=== PATIENT | male | born 1970 ===

== ENCOUNTER 2023-10-01 05:49 | Emergency (ER) | payer OTHER, SELFPAY ==
[2023-10-01 06:02] VITALS: BP 141/87; PULSE 91; RESP 20; TEMP 36.1; O2SAT 95
--- NOTE | 2023-10-01 06:17 | ED.GENADULT ---
HPI - General Adult General Date Seen: 10/01/23 Chief complaint: Unspecified Complaint, Adult Stated complaint: Weakness- pain all over Time Seen by Provider: 10/01/23 06:17 Source: patient Mode of arrival: ambulatory Limitations: language barrier History of Present Illness HPI narrative: 53-year-old male presents after waking from sleep with sweats and substernal chest pain that radiated down his left arm. He has never had this type of pain previously. He denies any health history. His father did have an GA. He is a smoker. He takes no medications regularly. He drove himself to the hospital. He does not speak [place] in we did use an online film developing machine operator. Related Data Home Medications Medication Instructions Recorded Confirmed No Known Home Medications 10/01/23 10/01/23 Allergies Allergy/AdvReac Type Severity Reaction Status Date / Time No Known Drug Allergies Allergy Verified 10/01/23 06:06 Review of Systems Narrative: Review of systems is as outlined above otherwise noted to be negative. Exam Narrative: Exam Narrative: Vitals noted. He is restless and uncomfortable. No respiratory distress. HEENT: Neck is supple without adenopathy, thyromegaly, carotid bruit. Lungs: Clear to auscultation in all leyva. No wheezes, rales, rhonchi. Heart: Regular rate and rhythm without murmur. Abdomen: Soft and nontender. No guarding, rigidity, rebound. Bowel sounds are normal. No palpable masses. Extremities: No cyanosis or edema. Good distal pulses. Const: Vital Signs, click to edit/add: Vital Signs - 24 hr 10/01/23 06:02 10/01/23 06:44 10/01/23 07:11 Temperature 97 F L Pulse Rate Pulse Rate [Pulse Oximeter] 91 69 Respiratory Rate 20 20 Respiratory Rate [ Generalized] 16 Blood Pressure Blood Pressure [Ri ght Upper Arm] 141/87 H 120/86 Pulse Oximetry 95 98 Oxygen Delivery Me thod Room Air Room Air 10/01/23 07:11 10/01/23 07:12 10/01/23 07:15 Temperature Pulse Rate 68 76 75 Pulse Rate [Pulse Oximeter] Respiratory Rate Respiratory Rate [ Generalized] Blood Pressure 120/86 Blood Pressure [Ri ght Upper Arm] Pulse Oximetry 98 98 98 Oxygen Delivery Me thod Course Course ED Course: Patient was initially placed in room 3 and after I spoke with him we moved him to room eight. EKG showed ST-elevation in V1, V2, V3. Standard STEMI procedures were rapidly followed. He received aspirin 325 mg orally, Brilinta 180 mg orally, nitroglycerin 0.4 mg sublingual with minimal relief. We initiated a nitroglycerin drip. He was placed on heparin 4000 unit bolus followed by drip. He did receive morphine 2 mg IV for pain. We contacted [facility] and I spoke with Dr. Soares. He will be rapidly transported by ground ambulance directly to the medical lab assistant at [facility]. Reevaluation(s) Reevaluation #1: EKG remains unchanged in the patient still having pain. His nitro has been increased to 10 micrograms/minute and another 2 mg of morphine was given. He is departing by ground ambulance in stable condition. Chest x-ray is normal. CBC is normal. Basic metabolic panel is normal other than a glucose of 152. LFTs are normal. Lipase is normal. Triple swab is pending. Troponin 0.03. D-dimer is normal. INR is 1.0. PTT is 29. Vital Signs Vital signs: Initial Vital Signs Temperature 97 F L 10/01/23 06:02 Temperature Source Temporal Artery Scan 10/01/23 06:02 Pulse Rate 91 10/01/23 06:02 Pulse Rhythm Regular 10/01/23 06:02 Respiratory Rate 20 10/01/23 06:02 Blood Pressure 141/87 H 10/01/23 06:02 Blood Pressure Mean 105 10/01/23 06:02 Blood Pressure Position Sitting 10/01/23 06:02 Pulse Oximetry 95 10/01/23 06:02 Oxygen Delivery Method Room Air 10/01/23 06:02 Vital Signs Temperature 97 F L 10/01/23 06:02 Pulse Rate 91 10/01/23 06:02 Respiratory Rate 20 10/01/23 06:02 Blood Pressure 141/87 H 10/01/23 06:02 Pulse Oximetry 95 10/01/23 06:02 Oxygen Delivery Method Room Air 10/01/23 06:02 Temperature 97 F L 10/01/23 06:02 Pulse Rate 75 10/01/23 07:15 Respiratory Rate 20 10/01/23 07:11 Blood Pressure 120/86 10/01/23 07:11 Pulse Oximetry 98 10/01/23 07:15 Oxygen Delivery Method Room Air 10/01/23 07:11 Medications Administered Medications: Generic Name Dose Route Start Last Admin Trade Name Freq PRN Reason Stop Dose Admin Heparin Sodium/Dextrose 25,000 unit in 500 mls @ 0 mls/hr 10/01/23 06:30 10/01/23 06:56 Heparin IV 19 mls/hr .PER PROTOCOL ERIC Administration Per Protocol Nitroglycerin/Dextrose 25,000 mcg in 250 mls @ 3 mls/hr 10/01/23 07:11 10/01/23 07:16 Nitroglycerin/Dextrose IVPB 5 mcg/min .TITRATE PRN 3 mls/hr Administration 5 MCG/MIN Discontinued Medications Generic Name Dose Route Start Last Admin Trade Name Freq PRN Reason Stop Dose Admin Aspirin 324 mg 10/01/23 06:30 10/01/23 06:42 Aspirin 81 Mg Tab.Chew PO 10/01/23 06:31 324 mg ONCE ONE Administration Clopidogrel Bisulfate 300 mg 10/01/23 06:39 10/01/23 07:18 Clopidogrel 300 Mg Tablet PO 10/01/23 06:40 Not Given ONCE ONE Heparin Sodium (Porcine) 4,000 unit 10/01/23 06:30 10/01/23 06:54 Heparin 5,000 Unit/0.5 Ml Inj IVP 10/01/23 06:31 4,000 unit ONCE ONE Administration Morphine Sulfate 2 mg 10/01/23 07:01 10/01/23 07:08 Morphine 2 Mg/Ml Inj IVP 10/01/23 07:02 2 mg ONCE ONE Administration Nitroglycerin 0.4 mg 10/01/23 06:30 10/01/23 06:42 Nitroglycerin 0.4 Mg Tab.Subl SUBLINGUAL 10/01/23 06:31 0.4 mg ONCE ONE Administration Ticagrelor 180 mg 10/01/23 06:58 10/01/23 07:01 Ticagrelor 90 Mg Tablet PO 10/01/23 06:59 180 mg ONCE ONE Administration Medical Decision Making Lab Data Labs: Lab Results 10/01/23 Range/Units 06:34 WBC 11.40 H (4.50-11.00) K/uL RBC 5.19 (4.30-5.90) m/uL Hgb 16.1 (13.5-17.5) gm/dL Hct 48.8 (37.0-53.0) % MCV 94 (80-100) fL MCH 31 (26-34) pg MCHC 33 (32-36) gm/dL RDW Coeff of [place] 12.0 (11.5-15.5) % Plt Count 246 (140-440) K/uL Neut % (Auto) 50.0 (42.0-72.0) % Lymph % (Auto) 40.5 (20-44) % [place] % (Auto) 4.6 (0.0-11.0) % Eos % (Auto) 4.0 (0.0-7.0) % Baso % (Auto) 0.7 (0.0-3.0) % Neut # (Auto) 5.70 (1.7-7.0) K/uL Lymph # (Auto) 4.60 H (0.90-2.90) K/uL [place] # (Auto) 0.50 (0.00-0.90) K/UL Eos # (Auto) 0.50 (0.00-0.50) K/uL Baso # (Auto) 0.10 (0.00-0.30) K/uL Abs Immat Gran (auto) 0.00 (0.00-0.30) K/uL Imm/Tot Granulo (auto) 0.2 % D-Dimer Quant (PE/DVT) Cancelled Sodium 138 (135-149) mmol/L Potassium 3.7 (3.6-5.1) mmol/L Chloride 106 (96-114) mmol/L Carbon Dioxide 22 (20-32) mmol/L Anion Gap 10 (7-15) mEq/L BUN 12 (7-30) mg/dL Creatinine 0.8 (0.5-1.5) mg/dL Estimated Creat Clear 91.47 Estimated GFR 107 ml/min Glucose 152 H (60-115) mg/dL Calcium 8.6 (8.4-10.6) mg/dL Total Bilirubin 0.5 (0.1-1.5) mg/dL Direct Bilirubin 0.0 (0.0-0.5) mg/dL AST 27 (12-35) U/L ALT 26 (4-50) U/L Alkaline Phosphatase 85 (40-150) U/L Total Protein 7.3 (6.0-8.3) g/dL Albumin 4.4 (3.3-5.0) g/dL Lipase 56 (23-300) U/L Critical Care Time Critical Care Time Critical Care Time: Yes Attestation: The patient required my highest level preparedness to intervene emergently and I personally spent this critical care time directly and personally managing the patient. This critical care time included: Obtaining a history; Examining the patient; Pulse oximetry; Ordering and reviewing of studies; Arranging urgent treatment with development of a management plan; Evaluation of patients response to treatment; Frequent reassessment discussions with other providers. This critical care time was performed to assess and manage the high probability of imminent life-threatening deterioration that could result in multiorgan failure. It was exclusive of separate billable procedures and treating other patients and teaching time. Total Critical Care Time in Minutes: 70 Discharge Plan Discharge Clinical Impression: ST elevation myocardial infarction (STEMI) Patient Disposition: [facility] Condition: Improved Prescriptions: No Action No Known Home Medications
--- NOTE | 2023-10-01 06:31 | CRLHL7_ITS ---
For Patients: As a result of the Century Cures Act, medical imaging exams and procedure reports are released immediately into your electronic medical record. You may view this report before your referring provider. If you have questions, please contact your health care provider. INDICATION: STEMI. TECHNIQUE: Chest 1 views. COMPARISON: None. FINDINGS: Cardiovasculature and mediastinum: Heart size and vasculature are normal in caliber and appearance. Lungs and pleural spaces: Right infrahilar atelectasis or infiltrate. Remainder of the lungs and pleural spaces are clear. No pneumothorax. Bones and soft tissues: No significant findings. Dictated by Yasmani Whittington MD @ 10/01/2023 7:08:52 AM (Electronically Signed)
[2023-10-01] MEDS: ASPIRIN 81 MG TAB.CHEW 324 MG PO (06:42)
[2023-10-01] MEDS: NITROGLYCERIN 0.4 MG TAB.SUBL SUBLINGUAL (06:42)
[2023-10-01 06:44] VITALS: RESP 16
[2023-10-01 06:47] LABS: Basophils Percent Auto 0.7 % (0.0-3.0); Hematocrit 48.8 % (37.0-53.0); Hemoglobin* 16.1 gm/dL (13.5-17.5); Immature Granulocytes Pct Auto 0.2 %; Lymphocytes Percent Auto 40.5 % (20-44); Mean Corpuscular HGB Conc 33 gm/dL (32-36); Mean Corpuscular Hemoglobin 31 pg (26-34); Mean Corpuscular Volume 94 fL (80-100); Monocytes Percent Auto 4.6 % (0.0-11.0); Platelet Count* 246 K/uL (140-440); Red Blood Count 5.19 m/uL (4.30-5.90)
[2023-10-01 06:52] LABS: Slide Review Reflex No
[2023-10-01] MEDS: HEPARIN 5,000 UNIT/0.5 ML INJ 4000 UNIT IVP (06:54)
[2023-10-01] MEDS: HEPARIN 25,000 UNIT/500 ML BAG 19 UNIT IV (06:56)
[2023-10-01] MEDS: TICAGRELOR 90 MG TABLET 180 MG PO (07:01)
[2023-10-01 07:05] LABS: Albumin* 4.4 g/dL (3.3-5.0); Chloride* 106 mmol/L (96-114)
[2023-10-01 07:06] LABS: Potassium* 3.7 mmol/L (3.6-5.1); Sodium* 138 mmol/L (135-149)
--- NOTE | 2023-10-01 07:06 | ED.NURSE ---
nurse to nurse report given at 0705 to rags laborer RN
[2023-10-01 07:08] LABS: Alkaline Phosphatase* 85 U/L (40-150); Anion Gap 10 mEq/L (7-15); Aspartate Amino Transferase* 27 U/L (12-35); Bilirubin Total* 0.5 mg/dL (0.1-1.5); Blood Urea Nitrogen* 12 mg/dL (7-30); Carbon Dioxide* 22 mmol/L (20-32); Creatinine* 0.8 mg/dL (0.5-1.5); Est. Creatinine Clearance* 91.47; Estimated Glomerular Filt Rate 107 ml/min; Glucose* 152 mg/dL (60-115); Lipase* 56 U/L (23-300); Total Protein* 7.3 g/dL (6.0-8.3)
[2023-10-01] MEDS: MORPHINE 2 MG/ML inj IVP (07:08)
[2023-10-01 07:09] LABS: Alanine Aminotransferase* 26 U/L (4-50); Calcium* 8.6 mg/dL (8.4-10.6)
[2023-10-01 07:10] LABS: Partial Thromboplastin Time* 29 Seconds (23-33); Prothrombin Time 13.8 Seconds
[2023-10-01 07:11] VITALS: BP 120/86; PULSE 68; PULSE 69; RESP 20; O2SAT 98
[2023-10-01 07:12] VITALS: PULSE 76; O2SAT 98
[2023-10-01 07:13] LABS: D Dimer Quantitative* 0.37 ug/ml (0.00-0.50)
[2023-10-01 07:15] VITALS: PULSE 75; O2SAT 98
[2023-10-01] MEDS: NITROGLYCERIN/DEXTROSE 25,000 MCG/250 ML BOTTLE 3 MCG IVPB (07:16)
[2023-10-01 07:20] LABS: Troponin I* 0.03 ng/mL (0.01-0.04)
[2023-10-01 07:30] LABS: PCR FLU A Negative PCR FLU A (Negative); PCR FLU B Negative PCR FLU B (Negative); PCR RSV Negative PCR RSV (Negative); SARS PCR* Negative SARS-CoV-2 (Negative)
[2023-10-07 14:00] LABS: Troponin, Point-of-Care* 0.03 ng/ml (0.01-0.04)
== END 2023-10-01 07:23 | disposition short-term general hospital (02) ==
LOC: ED 07:12
PROVIDERS: Emergency Provider Family Medicine
DX: I21.3 ST elevation (STEMI) myocardial infarction of unspecified site (principal)
CPT/HCPCS: 36415; 71045; 80048; 80076; 82565; 83690; 84484; 85025; 85379; 85610; 85730; 87631; 93005; 96374; 99285; 99291; A9270; J1644; J2270

== ENCOUNTER 2023-10-01 07:23 | Outpatient (CLI) | payer OTHER, SELFPAY | END 2023-10-01 07:24 | disposition home or self-care (01) | PROVIDERS: Visit Provider Family Medicine | DX: I21.4 Non-ST elevation (NSTEMI) myocardial infarction (principal) | CPT/HCPCS: A0425; A0433 ==